=== PATIENT | female | born 1970 | race Caucasian/White ===

== ENCOUNTER 2024-07-05 14:43 | Outpatient (CLI) | payer SELFPAY ==
--- NOTE | 2024-07-06 15:21 | CT Report ---
PROCEDURE: CT heart coronary calcium scoring without contrast TECHNIQUE: MDCT non-contrast cardiac gated images were obtained from the brissa through the inferior margin of the heart. Calcium score was obtained by post-processing with external software. Automated exposure control was used to reduce patient radiation dose. INDICATION: CAD screening, low or intermediate risk COMPARISON: None FINDINGS: Image quality: Diagnostic Agatston method: Total calcium score: 0 L main: 0 LAD: 0 LCX: 0 RCA: 0 Heart findings: Mitral annular calcifications: No significant calcifications. Aortic valve: No significant valvular calcifications. Chambers: No significant enlargement on this non-dynamic study. Pericardium: Trace fluid versus thickening Other findings (note the chest is incompletely imaged on this limited non-contrast study): Lungs and pleura: No actionable pulmonary nodules. There is a right lung 4 mm nodule. No dense airspa ce disease. Mediastinum: No pathologic lymphadenopathy. Upper abdomen: Partially seen, unremarkable. Bones: No acute or suspicious abnormality. IMPRESSION: Coronary calcium score of 0. Incidentals: 4 mm right lung nodule, consider follow-up with optional one-year chest CT if the patien t is considered high risk. Coronary artery calcium scores have been identified as an independent risk factor for future acute co ronary syndromes and correlate with the quantity of coronary atherosclerotic plaque. However, they do not correlate directly with the degree of stenosis. A low score does not exclude a significant coron da artery stenosis. Risk of future coronary events should be assessed with individual patient risk factors and medical hi story. Consider correlation with risk percentiles using the KEATING (Multi-Ethnic Study of Atheroscleros is) calculator. CAC-DRS Categories: A0: 0, very low risk, consider repeat coronary calcium study every 3-7 years for surveillance. A1: 1-99, mildly increased risk, consider moderate-intensity statin A2: 100-299: moderately increased risk, consider moderate to high-intensity statin + ASA 81mg A3: >300: moderately to severely increased risk, consider high-intensity statin + ASA 81mg Reviewed by: Josep Mathis MD on 07/06/2024 3:19 PM PDT Approved by: Josep Mathis MD on 07/06/2024 3:19 PM PDT Station ID: [id number]
== END 2024-07-05 14:44 | disposition home or self-care (01) ==
LOC: DI 14:43
PROVIDERS: ATTEND Nurse Practitioner Family
DX: E78.5 Hyperlipidemia, unspecified (principal); R91.1 Solitary pulmonary nodule